=== PATIENT | male | born 1980 | race Caucasian/White ===

== ENCOUNTER → 2021-05-28 00:01 | Outpatient (BNVA) | payer OTHER, SELFPAY | PROVIDERS: Family Provider Family Medicine; PCP Family Medicine; Visit Provider Psychiatry & Neurology Psychiatry | DX: Z03.89 Encounter for observation for other suspected diseases and conditions ruled out (principal); Z79.899 Other long term (current) drug therapy; F32.A Depression, unspecified | CPT/HCPCS: 80053; 80061; 83036; 84402; 84403; 84443; 85025 ==

== ENCOUNTER → 2022-04-29 12:41 | Outpatient (BNVA) | payer OTHER, SELFPAY | PROVIDERS: Family Provider Family Medicine; PCP Family Medicine; Visit Provider Emergency Medicine | DX: R30.0 Dysuria (principal); R10.9 Unspecified abdominal pain; R10.32 Left lower quadrant pain | CPT/HCPCS: 81000; 87086 ==

== ENCOUNTER 2022-05-05 08:38 | Outpatient (CLI) | payer OTHER, SELFPAY ==
--- NOTE | 2022-05-05 09:15 | US_ITS ---
WS: [id number] Limited abdomen ultrasound. HISTORY: Pain LEFT lower quadrant. Ultrasound is directed to the area of pain in the LEFT lower quadrant. No defect is noted within the abdominal wall musculature. There is a very small ill-defined area of i ncreased echogenicity in the LEFT lower quadrant in the area of pain measuring 8 x 11 mm. This may re present a small lipoma or a very tiny hernia containing omentum only. No abnormality was noted on a C T from 2019 and the LEFT lower quadrant. US/US abdomen limited [id number] IMPRESSION: 1. Possible very small omental hernia versus lipoma in the LEFT lower quadrant . 2. No herniation of bowel loop no suspicious mass.
== END 2022-05-05 08:39 | disposition home or self-care (01) ==
PROVIDERS: PCP Family Medicine; Visit Provider Emergency Medicine
DX: R10.9 Unspecified abdominal pain (principal)
CPT/HCPCS: 76705

== ENCOUNTER → 2022-09-08 09:29 | Outpatient (BNVA) | payer OTHER, SELFPAY | PROVIDERS: PCP Family Medicine; Visit Provider Family Medicine | DX: R53.83 Other fatigue (principal); E34.9 Endocrine disorder, unspecified; E78.1 Pure hyperglyceridemia; Z13.1 Encounter for screening for diabetes mellitus; I10 Essential (primary) hypertension | CPT/HCPCS: 80053; 80061; 82607; 82652; 84402; 84403; 84443; 85025 ==

== ENCOUNTER 2022-10-20 16:30 | Outpatient (CLI) | payer OTHER, SELFPAY | END 2022-10-20 16:31 | disposition home or self-care (01) | LOC: SLEEP 10-21 16:58 | PROVIDERS: PCP Family Medicine; Visit Provider Family Medicine | DX: G47.10 Hypersomnia, unspecified (principal) | CPT/HCPCS: G0399 ==

== ENCOUNTER → 2022-12-22 09:55 | Outpatient (BNVA) | payer OTHER, SELFPAY | PROVIDERS: PCP Family Medicine; Visit Provider Family Medicine | DX: E34.9 Endocrine disorder, unspecified (principal) | CPT/HCPCS: 84402; 84403 ==

== ENCOUNTER → 2023-03-23 10:09 | Outpatient (BNVA) | payer OTHER, SELFPAY | PROVIDERS: PCP Family Medicine; Visit Provider Family Medicine | DX: E34.9 Endocrine disorder, unspecified (principal) | CPT/HCPCS: 84402; 84403 ==

== ENCOUNTER 2023-07-22 15:48 | Inpatient (IN) | payer MEDICAID, SELFPAY ==
[2023-07-22 15:50] VITALS: BP 147/79; PULSE 70; TEMP 36.8; O2SAT 99; BMI 29.5
--- NOTE | 2023-07-22 16:08 | ED.C_ITS ---
HPI - Psych 2 General: Chief Complaint: Psychiatric Symptoms Stated Complaint: psych eval Time Seen by Provider: 07/22/23 15:49 Source: patient and police Mode of arrival: other Limitations: no limitations History of Present Illness: 42-year-old male states been having extr navneet depression. 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 He does have a history of depression in the past. Associated symptoms: Reports depression and suicidal ideation Review of Systems 2 Const: Denies: fever(s), chills, body aches or change in appetite ENMT: Denies: throat pain or dental pain Card: Denies: chest pain Resp: Denies: dyspnea GI: Denies: abdominal pain, nausea, vomiting or diarrhea Musc: Denies: neck pain or back pain Skin/Breast: Denies: rash Neuro: Denies: headache(s) Psych: Reports: depression and suicidal ideation PFS ED 2 PFSH: Medical History Anxiety Degenerative disc disease Depression Family history of alpha 1 antitrypsin deficiency Other senior living (current) drug therapy 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 Psychiatric care Social History Smoking and tobacco/nicotine status: former use of tobacco/nicotine Physical Exam 2 Const: COMMON NORMALS: no acute distress, patient oriented x3 and healthy appearing HENMT: COMMON NORMALS: normocephalic and atraumatic HEAD & SCALP: n ormocephalic and atraumatic Neck/C-Spine: COMMON NORMALS: full ROM and supple Chest: COMMONS NORMALS: normal inspection of the chest Resp: COMMON NORMALS: normal respiratory effort Extremity: COMMON NORMALS: normal to inspection and full ROM Neuro: COMMON NORMALS: patient oriented x3, moves all extremities and no focal motor deficits Psych: COMMON NORMALS: mental status grossly normal, Normal thought process present and cooperative MOOD & AFFECT: Yes depressed mood THOUGHT PROCESS: Normal thought process present THOUGHT CONTENT: Yes Suicidality present Skin: COMMON NORMALS: no rashes or lesions noted and no wounds GENERAL SKIN EXAM: no rashes or lesions noted Course 2 Vital Signs: Vital signs: Vital Signs Temperature 98.3 F 07/22/23 15:50 Pulse Rate 70 07/22/23 15:50 Blood Pressure 147/79 07/22/23 15:50 Pulse Oximetry 99 07/22/23 15:50 Oxygen Delivery Me thod Room Air 07/22/23 15:50 MDM - Psych Medical Decision Making Patient presents here with suicidal ideations he is placed in a 96-hour hold I spoke to psychiatrist and will admit at this time. Medical Records I reviewed the patient's medical records. Lab Data I reviewed the patient's lab results. 07/22/23 15:38 07/22/23 15:38 Laboratory Results WBC 5.85 10^3/uL (3.29-11.43) 07/22/23 15:38 RBC 5.73 10^6/uL (3.85-5.65) H 07/22/23 15:38 Hgb 17.40 g/dL (11.27-16.99) H 07/22/23 15:38 Hct 51.9 % (37-53) 07/22/23 15:38 MCV 90.6 fl (82-101) 07/22/23 15:38 MCH 30.4 pg (27-33) 07/22/23 15:38 MCHC 33.5 g/dL (30-55) 07/22/23 15:38 RDW 12.0 % (12.1-15.1) L 07/22/23 15:38 Plt Count 220 10^3/cmm (157-399) 07/22/23 15:38 MPV 9.3 fL (7.4-10.4) 07/22/23 15:38 Neut % (Auto) 66.1 % 07/22/23 15:38 Lymph % (Auto) 21.9 % 07/22/23 15:38 [place] % (Auto) 8.9 % 07/22/23 15:38 Eos % (Auto) 2.2 % 07/22/23 15:38 Baso % (Auto) 0.7 % 07/22/23 15:38 Neut # (Auto) 3.87 10^3/uL (1.8-7.7) 07/22/23 15:38 Lymph # (Auto) 1.3 10^3/uL (0.8-4.8) 07/22/23 15:38 [place] # (Auto) 0.5 10^3/uL (0.2-0.9) 07/22/23 15:38 Eos # (Auto) 0.1 10^3/uL (0.0-0.8) 07/22/23 15:38 Baso # (Auto) 0.0 10^3/uL (0.0-0.1) 07/22/23 15:38 Nucleated RBC % (auto) 0 % 07/22/23 15:38 Nucleated RBCs # 0.0 /100WBC 07/22/23 15:38 Sodium 138 mmol/L (136-145) 07/22/23 15:38 Potassium 3.9 mmol/L (3.5-5.1) 07/22/23 15:38 Chloride 101 mmol/L (98-107) 07/22/23 15:38 Carbon Dioxide 26 mmol/L (22-29) 07/22/23 15:38 Anion Gap 14.9 (5-19) 07/22/23 15:38 BUN 13 mg/dL (6-20) 07/22/23 15:38 Creatinine 1.1 mg/dL (0.7-1.2) 07/22/23 15:38 GFR Calculation 73.4 mL/min (90-130) L 07/22/23 15:38 Glucose 97 mg/dL (65-115) 07/22/23 15:38 Calculated Osmolality 286 mOsm/kg (285-295) 07/22/23 15:38 Calcium 9.1 mg/dL (8.5-10.5) 07/22/23 15:38 Total Bilirubin 0.6 mg/dL (0.15-1.2) 07/22/23 15:38 AST 51 U/L (0-40) H 07/22/23 15:38 ALT 66 U/L (0-41) H 07/22/23 15:38 Alkaline Phosphatase 57 U/L (40-130) 07/22/23 15:38 Total Protein 8.3 g/dL (6.6-8.7) 07/22/23 15:38 Albumin 4.9 g/dL (3.5-5.2) 07/22/23 15:38 Globulin 3.4 g/dL (1.3-4.6) 07/22/23 15:38 Salicylates < 0.3 mg/dL (3-10) L 07/22/23 15:38 Urine Opiates Screen Negative ng/mL (Negative) 07/22/23 16:00 Acetaminophen < 5.0 ug/mL (10-30) L 07/22/23 15:38 Ur Barbiturates Screen Negative ng/mL (Negative) 07/22/23 16:00 Ur Phencyclidine Scrn Negative ng/mL (Negative) 07/22/23 16:00 Ur Amphetamines Screen Negative ng/mL (Negative) 07/22/23 16:00 U Benzodiazepines Scrn Negative ng/mL (Negative) 07/22/23 16:00 Urine Cocaine Screen Negative ng/mL (Negative) 07/22/23 16:00 U Marijuana (THC) Screen Negative ng/mL (Negative) 07/22/23 16:00 Ethyl Alcohol 66 mg/dL (0-10) H 07/22/23 15:38 No radiology studies performed this visit Discharge Plan Discharge Patient Disposition: Admitted As Inpatient Clinical Impression: Suicidal ideation Condition: Stable Prescriptions: No Action cholecalciferol (vitamin D3) 10 mcg (400 unit) capsule 10 mcg PO DAILY omega 0-znz-lex-fish oil [Fish Oil] 1,000 mg (120 mg-180 mg) capsule 1 cap PO BID clonazepam 0.5 mg tablet 0.5 mg PO BID PRN (Reason: anxiety) 30 Days Qty: 60 2RF escitalopram oxalate 20 mg tablet 20 mg PO DAILY 30 Days Qty: 30 3RF testosterone cypionate [Depo-Testosterone] 200 mg/mL oil 200 mg SUBCUT Q14D 90 Days Qty: 7 0RF Rx Instructions: Include IM needles and syringes for injection hydroxyzine HCl 10 mg tablet 10 mg PO BID PRN (Reason: sleep or anxiety) 30 Days Qty: 60 0RF Referrals: Donna Ibrahim MD [Primary Care Provider] - Coding Level of Care Code ED [employer] for [facility] Kimberly
[2023-07-22 16:15] LABS: Basophils % 0.7 %; Eosinophils # 0.1 10^3/uL (0.0-0.8); Eosinophils % 2.2 %; Hematocrit 51.9 % (37-53); Lymphocytes # 1.3 10^3/uL (0.8-4.8); Lymphocytes % 21.9 %; Mean Corpuscular HGB Conc 33.5 g/dL (30-55); Mean Corpuscular Hemoglobin 30.4 pg (27-33); Mean Corpuscular Volume 90.6 fl (82-101); Mean Platelet Volume 9.3 fL (7.4-10.4); Monocytes # 0.5 10^3/uL (0.2-0.9); Monocytes % 8.9 %; Neutrophils # 3.87 10^3/uL (1.8-7.7); Neutrophils % 66.1 %; Nucleated Red Blood Cells % 0 %; Platelet Count 220 10^3/cmm (157-399); Red Blood Count 5.73 10^6/uL (3.85-5.65); White Blood Count 5.85 10^3/uL (3.29-11.43)
[2023-07-22 16:26] LABS: Amphetamines Screen Urine Negative (Negative); Barbiturates Screen Urine Negative (Negative); Benzodiazepines Screen Urine Negative (Negative); Cocaine Screen Urine Negative (Negative); Opiate Screen Urine Negative (Negative); PCP Screen Urine Negative (Negative); THC Screen Urine Negative (Negative)
[2023-07-22 16:33] LABS: Acetaminophen < 5.0 ug/mL (10-30); Alanine Aminotransferase 66 U/L (0-41); Albumin Level 4.9 g/dL (3.5-5.2); Alcohol Level 66 mg/dL (0-10); Alkaline Phosphatase 57 U/L (40-130); Aspartate Amino Transferase 51 U/L (0-40); Blood Urea Nitrogen 13 mg/dL (6-20); Calcium 9.1 mg/dL (8.5-10.5); Carbon Dioxide 26 mmol/L (22-29); Chloride 101 mmol/L (98-107); Globulin 3.4 g/dL (1.3-4.6); Glomerular Filtration Rate 73.4 mL/min (90-130); Glucose 97 mg/dL (65-115); Osmolality Calculated 286 mOsm/kg (285-295); Salicylate < 0.3 mg/dL (3-10); Sodium 138 mmol/L (136-145); Total Bilirubin 0.6 mg/dL (0.15-1.2); Total Protein 8.3 g/dL (6.6-8.7)
[2023-07-22 16:34] LABS: Anion Gap 14.9 (5-19); Potassium 3.9 mmol/L (3.5-5.1)
--- NOTE | 2023-07-22 17:09 | PC.NURSE ---
96 hour hold rights read and reviewed with patient. Patient verbalized understandings and copy left at the bedside.
[2023-07-22 20:20] VITALS: BP 144/92; PULSE 57; RESP 20; TEMP 36.8; O2SAT 99
--- NOTE | 2023-07-23 06:41 | PC.NURSE ---
pt sleeping resp 16
[2023-07-23] MEDS: omega-3 fatty acids 1,000 mg Capsule 1000 MG PO ×2 (08:29→17:45)
[2023-07-23] MEDS: escitalopram 10 mg Tablet 20 MG PO (08:29)
[2023-07-23] MEDS: cholecalciferol (vitamin D3) 1,000 unit Tablet 500 UNIT PO (08:30)
[2023-07-23] MEDS: CLONazepam 0.5 mg Tablet PO (08:30)
--- NOTE | 2023-07-23 10:14 | P.NPUHP_ITS ---
Providers/Chief Complaint 2 Admitting Physician: Zheng Ibrahim MD Primary Care Provider: Donna Ibrahim MD Chief Complaint: psych eval HPI NPU History of Present Illness Star Burden is a 42 year old male who presented to the emergency department with the following report: Chief Complaint: Psychiatric Symptoms Stated Complaint: psych eval Time Seen by Provider: 07/22/23 15:49 Source: patient and police Mode of arrival: other Limitations: no limitations History of Present Illness: 42-year-old male states been having extreme depression. 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 He does have a history of depression in the past. Associated symptoms: Reports depression and suicidal ideation The patient was admitted to the neuropsychiatric unit for definitive treatment of those issues. The patient presents today reporting that he is taking Lexapro and Klonopin. Patient reports he is here because he made a mistake and should have never said anything. He reports that he was having bad thoughts and called his lauro and brought himself in, and he now wishes he would not have, saying he wants to go home. He denies feeling suicidal. The patient denies any previous psychiatric hospitalizations. He endorses seeing Dr. Toribio at [facility] for about a year, due to depression. He reports that he takes testosterone. The patient reports that he quit smoking a long time ago and vapes now but is in the process of quitting that as well. He endorses alcohol use, mostly on the weekend. He endorses very little marijuana use. He denies cocaine, methamphetamine or any other illicit drug use. He has never had a DUI or any other drug related charges. The patient endorses depression since he was a kid but reports that he did not seek help until more recently at his ?s encouragement. He reports that about three months ago he got fired from [employer] for speaking his mind about something, stating it was all over the news. Since then, he reports it has been tough saying it was his love, his passion, his identity. 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 Since that happened and he lost his identity to help people, his depression has gotten worse. He endorses that he found another job for now, but it doesn?t pay the same, and doesn?t have insurance, and it not enough, and he and his have worked hard and own their home and vehicles, and now they are treading water. Yesterday all that was getting to him, and he called his friend to bring him in. But he states that now he would rather be home because at least he feels at peace because he has a great and daughter. He endorses some sleep difficulty recently. He reports that he thinks he is just trying to find his place after 21 years at the [employer]. He denies self-injurious behavior. He denies any previous suicidal actions or passive wish. He denies paranoia or auditory or visual hallucinations. He endorses nightmares of not being there during a fire and not being available to help. He reports that yesterday he was just feeling like a failure, and he just found out that his had some anxiety and he felt responsible. PSYCHIATRIC HISTORY: As above. SUBSTANCE ABUSE HISTORY: As above.? FAMILY HISTORY: The patient endorses mental health issues on dad?s side of the family. He endorses addiction issues on his dad?s side. He denies suicide attempts or completions. DEVELOPMENTAL HISTORY: The patient denies any issues with his mother?s or delivery of him. The patient reports learning to walk and talk and meeting developmental milestones on time. The patient denies speech therapy, learning support, emotional support, or special education classes. PSYCHOSOCIAL HISTORY: The patient reports that his mother and father were together at his and were together until his dad of cancer, June of 1996. He reports that there are four total children from that union, and he is the second oldest. He has an older sister and two younger brothers. He reports that his mom got remarried about six years after his dad and they are still together. He describes his childhood as great until dad got cancer, leukemia. He denies emotional, physical, or sexual abuse. He denies [employer] involvement. He reports that he graduated from high school. 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 He endorses being heterosexual, with his longest relationship being twenty-two years. He has been once and has a daughter who is 16 years old. He has not been in the . He denies a orthodox belief system. He reports that he worked at the [employer] for 21 years, which was his longest job. He reports that he currently lives in a house with his and daughter. LEGAL HISTORY: Denied. MEDICAL HISTORY: The patient denies any known allergies to medications. The patient reports that they are watching his blood pressure as it has been a little bit elevated, because of the testosterone. He reports that he had inguinal hernia surgery, on his left side, last April. Meds NPU Home Medications Medication Instructions Recorded Confirmed Last Taken Type cholecalciferol (vitamin D3) 10 10 mcg PO DAILY 06/23/21 07/22/23 07/22/23 History mcg (400 unit) capsule omega 4-ssx-nsa-fish oil 1,000 mg 1 cap PO BID 09/08/22 07/22/23 07/22/23 History (120 mg-180 mg) capsule (Fish Oil) testosterone cypionate 200 mg/mL 200 mg SUBCUT Q14D 90 days #7 mL 03/30/23 07/22/23 Unknown Rx intramuscular oil (Depo-Testosterone) clonazepam 0.5 mg tablet 0.5 mg PO BID PRN anxiety 30 days 05/18/23 07/22/23 07/22/23 Rx #60 tabs escitalopram oxalate 20 mg tablet 20 mg PO DAILY 30 days #30 tabs 06/10/23 07/22/23 07/22/23 Rx Allergies Allergy/AdvReac Type Severity Reaction Status Date / Time No Known Allergies Allergy Verified 07/22/23 16:09 PFS NPU 2 PFSH: Medical History Anxiety Degenerative disc disease Depression Family history of alpha 1 antitrypsin deficiency Other shelter (current) drug therapy Other shelter (current) drug therapy Psychiatric care Social History Smoking and tobacco/nicotine status: former use of tobacco/nicotine Mental Status Exam 2 MSE Comments: This is a well-nourished, well-developed, white male, in hospital scrubs, with adequate grooming and eye contact. Significant tattooing on exposed skin. No abnormal movements, except for mild psychomotor retardation. Cooperative with exam in mild distress. Speech was normal rate and volume. Mood described as ?if I can get out of here, I will be really happy?; affect congruent. Thought process, organized. Thought content: patient denied any suicidal or homicidal ideation, there were no delusions reported or noted, patient denied any auditory or visual hallucinations. Attention, concentration, and memory appeared intact, but none were formally tested. Alert and oriented times three. Insight and judgment appear fair. Impulse control is limited. Vitals/I&O/Wt Last Vital Signs Temp 98.3 F 07/22/23 20:20 Pulse 57 L 07/22/23 20:20 Resp 20 H 07/22/23 20:20 BP 144/92 07/22/23 20:20 Pulse Ox 99 07/22/23 20:20 O2 Del Method Room Air 07/22/23 20:20 Weight last 48 hrs Weight 96.162 kg Data NPU 07/22/23 15:38 07/22/23 15:38 A&P Assessment and plan (1) Generalized anxiety disorder: (2) Major depressive disorder without psychotic features: (3) Testosterone deficiency: (4) Hyperlipidemia: Qualifiers: Hyperlipidemia type: pure hypertriglyceridemia Qualified Code(s): E78.1 - Pure hyperglyceridemia (5) Hypertension: Qualifiers: Hypertension type: primary hypertension Qualified Code(s): I10 - Essential (primary) hypertension (6) GIO (obstructive sleep apnea): (7) Suicidal ideation: Plan This is a 42-year-old white male with history of depression and anxiety and adjusting to a job change who presents with suicidal ideation on a 96-hour hold. 1.? Continue current medication. 2.? Encourage individual, group, and milieu therapy. 3.? Continue q-15-minute checks for safety. 4. Evaluate for safety given concerns of 96-hour hold. Involuntary Hold Information 2 96 Hour Hold: 96 Hour Involuntary Admission: Yes 96 Hour Hold Ending Date: 07/28/23 96 Hour Hold Ending Time: 16:08 Attestations NPU 2 Medical Necessity Statement*: Inpatient hospitalization is medically necessary and the clinically appropriate intervention, at this time. We will monitor medications and make changes as indicated. Patient will be in the hospital for over two midnights. Likely length of stay is 2-4 days. Coding Level of Care Code Acute Code for Chg Fwd Diagnoses Generalized anxiety disorder F41.1 Major depressive disorder without psychotic features F32.9 Testosterone deficiency E34.9 Pure hypertriglyceridemia E78.1 Hyperlipidemia type: pure hypertriglyceridemia Primary hypertension I10 Hypertension type: primary hypertension GIO (obstructive sleep apnea) G47.33 Suicidal ideation R45.854
--- NOTE | 2023-07-23 12:01 | PC.NURSE ---
pt has refused all meals since being here. went to pt explaining the importance of eating while in this facility. pt stated he did this from time to time but he understood the reasoning behind eating. sam was brought to room for pt convience.
[2023-07-23 14:00] VITALS: BP 188/76; PULSE 88; RESP 16; TEMP 36.5; O2SAT 98
--- NOTE | 2023-07-23 15:00 | PC.OT ---
OT eval attempted on 07/23/2023. Will attempt at later time.
[2023-07-23 20:51] VITALS: BP 150/89; PULSE 55; RESP 18; TEMP 36.6; O2SAT 94
[2023-07-24 06:00] VITALS: BP 126/69; PULSE 57; RESP 18; TEMP 36.7; O2SAT 98
--- NOTE | 2023-07-24 08:21 | P.NPUPN_ITS ---
Subjective NPU 2 Subjective: Patient presented today reporting that he is doing fine and would really be happy if we just sent him home. We discussed concerns related to the reports in his affidavit of him putting a gun to his head. He is now reporting that he just do what I needed to say. We discussed that we have no way of knowing what he said he did versus what he actually did and that by talking about having a gun to his head when he has access to guns (in a position that we need to be cautious. He reports that the guns have been removed and he would be safe for discharge and we discussed needing to observe and investigate further. Mental Status Exam 2 MSE Comments: This is a well-nourished, well-developed, white male, in hospital scrubs, with adequate grooming and eye contact. Significant tattooing on exposed skin. No abnormal movements, except for mild psychomotor retardation. Cooperative with exam in mild distress. Speech was normal rate and volume. Mood described as ?if I can get out of here, I will be really happy?; affect congruent. Thought process, organized. Thought content: patient denied any suicidal or homicidal ideation, there were no delusions reported or noted, patient denied any auditory or visual hallucinations. Attention, concentration, and memory appeared intact, but none were formally tested. Alert and oriented times three. Insight and judgment appear fair. Impulse control is limited. Vitals/I&O/Wt Last Vital Signs Temp 98.0 F 07/24/23 06:00 Pulse 57 L 07/24/23 06:00 Resp 18 07/24/23 06:00 BP 126/69 07/24/23 06:00 Pulse Ox 98 07/24/23 06:00 O2 Del Method Room Air 07/23/23 14:00 Weight last 48 hrs Weight 96.162 kg Data NPU 07/22/23 15:38 07/22/23 15:38 A&P Assessment and plan (1) Generalized anxiety disorder: (2) Major depressive disorder without psychotic features: (3) Testosterone deficiency: (4) Hyperlipidemia: Qualifiers: Hyperlipidemia type: pure hypertriglyceridemia Qualified Code(s): E78.1 - Pure hyperglyceridemia (5) Hypertension: Qualifiers: Hypertension type: primary hypertension Qualified Code(s): I10 - Essential (primary) hypertension (6) GIO (obstructive sleep apnea): (7) Suicidal ideation: Plan This is a 42-year-old white male with history of depression and anxiety and adjusting to a job change who presents with suicidal ideation on a 96-hour hold. 1.? Continue current medication. 2.? Encourage individual, group, and milieu therapy. 3.? Continue q-15-minute checks for safety. 4. Evaluate for safety given concerns of 96-hour hold. Involuntary Hold Information 2 96 Hour Hold: 96 Hour Involuntary Admission: Yes 96 Hour Hold Ending Date: 07/28/23 96 Hour Hold Ending Time: 16:08 Attestations NPU 2 Medical Necessity Statement*: Inpatient hospitalization is medically necessary and the clinically appropriate intervention, at this time. We will monitor medications and make changes as indicated. Patient will be in the hospital for over two midnights. Likely length of stay is 2-4 days. Coding Level of Care Code Acute Code for Chg Fwd Diagnoses Generalized anxiety disorder F41.1 Major depressive disorder without psychotic features F32.9 Testosterone deficiency E34.9 Pure hypertriglyceridemia E78.1 Hyperlipidemia type: pure hypertriglyceridemia Primary hypertension I10 Hypertension type: primary hypertension GIO (obstructive sleep apnea) G47.33 Suicidal ideation R45.851
[2023-07-24] MEDS: escitalopram 10 mg Tablet 20 MG PO (09:08)
[2023-07-24] MEDS: cholecalciferol (vitamin D3) 1,000 unit Tablet 500 UNIT PO (09:08)
[2023-07-24] MEDS: omega-3 fatty acids 1,000 mg Capsule 1000 MG PO ×2 (09:08→17:59)
[2023-07-24 14:00] VITALS: BP 108/77; PULSE 61; RESP 16; TEMP 36.6; O2SAT 98
[2023-07-24 20:42] VITALS: BP 161/96; PULSE 61; RESP 18; TEMP 36.7; O2SAT 97
[2023-07-25 06:00] VITALS: BP 116/65; PULSE 104; RESP 15; O2SAT 99
[2023-07-25] MEDS: cholecalciferol (vitamin D3) 1,000 unit Tablet 500 UNIT PO (08:33)
[2023-07-25] MEDS: escitalopram 10 mg Tablet 20 MG PO (08:33)
[2023-07-25] MEDS: omega-3 fatty acids 1,000 mg Capsule 1000 MG PO ×2 (08:33→17:00)
--- NOTE | 2023-07-25 13:03 | P.NPUPN_ITS ---
Subjective NPU 2 Subjective: Patient presented today reporting that he is feeling better and hoping to discharge soon. We discussed the fact that we needed to have a better sense of where her gums are and in the sense that his significant others have concerns about his safety given the statements he is made. He continues to hold to the fact that he made these comments to get assistance but that he never had a gun to his head etc. He denied any side effects to his medications. Mental Status Exam 2 MSE Comments: This is a well-nourished, well-developed, white male, in hospital scrubs, with adequate grooming and eye contact. Significant tattooing on exposed skin. No abnormal movements, except for mild psychomotor retardation. Cooperative with exam in mild distress. Speech was normal rate and volume. Mood described as I feel better; affect congruent. Thought process, organized. Thought content: patient denied any suicidal or homicidal ideation, there were no delusions reported or noted, patient denied any auditory or visual hallucinations. Attention, concentration, and memory appeared intact, but none were formally tested. Alert and oriented times three. Insight and judgment appear fair. Impulse control is limited. Vitals/I&O/Wt Last Vital Signs Temp 98.1 F 07/24/23 20:42 Pulse 104 H 07/25/23 06:00 Resp 15 07/25/23 06:00 BP 116/65 07/25/23 06:00 Pulse Ox 99 07/25/23 06:00 O2 Del Method Room Air 07/24/23 14:00 Weight last 48 hrs Weight 105.596 kg Data NPU 07/22/23 15:38 07/22/23 15:38 A&P Assessment and plan (1) Generalized anxiety disorder: (2) Major depressive disorder without psychotic features: (3) Testosterone deficiency: (4) Hyperlipidemia: Qualifiers: Hyperlipidemia type: pure hypertriglyceridemia Qualified Code(s): E78.1 - Pure hyperglyceridemia (5) Hypertension: Qualifiers: Hypertension type: primary hypertension Qualified Code(s): I10 - Essential (primary) hypertension (6) GIO (obstructive sleep apnea): (7) Suicidal ideation: Plan This is a 42-year-old white male with history of depression and anxiety and adjusting to a job change who presents with suicidal ideation/homicidal ideation on a 96-hour hold. 1.? Continue current medication. 2.? Encourage individual, group, and milieu therapy. 3.? Continue q-15-minute checks for safety. 4. Evaluate for safety given concerns of 96-hour hold. Involuntary Hold Information 2 96 Hour Hold: 96 Hour Involuntary Admission: Yes 96 Hour Hold Ending Date: 07/28/23 96 Hour Hold Ending Time: 16:08 Attestations NPU 2 Medical Necessity Statement*: Inpatient hospitalization is medically necessary and the clinically appropriate intervention, at this time. We will monitor medications and make changes as indicated. Patient will be in the hospital for over two midnights. Likely length of stay is 1-3 days. Coding Level of Care Code Acute Code for Chg Fwd Diagnoses Generalized anxiety disorder F41.1 Major depressive disorder without psychotic features F32.9 Testosterone deficiency E34.9 Pure hypertriglyceridemia E78.1 Hyperlipidemia type: pure hypertriglyceridemia Primary hypertension I10 Hypertension type: primary hypertension GIO (obstructive sleep apnea) G47.33 Suicidal ideation R45.851
[2023-07-25 14:00] VITALS: BP 147/82; PULSE 58; RESP 16; TEMP 36.6; O2SAT 99
[2023-07-25 19:38] VITALS: BP 145/93; PULSE 56; RESP 18; O2SAT 100
[2023-07-25] MEDS: CLONazepam 0.5 mg Tablet PO (20:13)
[2023-07-26 06:00] VITALS: BP 126/78; PULSE 67; RESP 18; O2SAT 98
--- NOTE | 2023-07-26 07:39 | P.NPUPN_ITS ---
Subjective NPU 2 Subjective: Patient presented today reporting that he is feeling okay. We discussed working with his on securing the home from the standpoint of weapons. We also discussed working with the social work team to get appropriate treatment in place as well as follow-up appointments. We discussed the likelihood of discharge in the morning. Otherwise he denied any new issues or side effects to medications. Mental Status Exam 2 MSE Comments: This is a well-nourished, well-developed, white male, in hospital scrubs, with adequate grooming and eye contact. Significant tattooing on exposed skin. No abnormal movements Cooperative with exam in no acute distress. Speech was normal rate and volume. Mood described as better; affect congruent. Thought process, organized. Thought content: patient denied any suicidal or homicidal ideation, there were no delusions reported or noted, patient denied any auditory or visual hallucinations. Attention, concentration, and memory appeared intact, but none were formally tested. Alert and oriented times three. Insight and judgment appear fair. Impulse control is limited. Vitals/I&O/Wt Last Vital Signs Temp 98 F 07/25/23 14:00 Pulse 67 07/26/23 06:00 Resp 18 07/26/23 06:00 BP 126/78 07/26/23 06:00 Pulse Ox 98 07/26/23 06:00 O2 Del Method Room Air 07/25/23 19:38 Weight last 48 hrs Weight 105.596 kg Data NPU 07/22/23 15:38 07/22/23 15:38 A&P Assessment and plan (1) Generalized anxiety disorder: (2) Major depressive disorder without psychotic features: (3) Testosterone deficiency: (4) Hyperlipidemia: Qualifiers: Hyperlipidemia type: pure hypertriglyceridemia Qualified Code(s): E78.1 - Pure hyperglyceridemia (5) Hypertension: Qualifiers: Hypertension type: primary hypertension Qualified Code(s): I10 - Essential (primary) hypertension (6) GIO (obstructive sleep apnea): (7) Suicidal ideation: Plan This is a 42-year-old white male with history of depression and anxiety and adjusting to a job change who presents with suicidal ideation/homicidal ideation on a 96-hour hold. 1.? Continue current medication. 2.? Encourage individual, group, and milieu therapy. 3.? Continue q-15-minute checks for safety. 4. Evaluate for safety given concerns of 96-hour hold. Involuntary Hold Information 2 96 Hour Hold: 96 Hour Involuntary Admission: Yes 96 Hour Hold Ending Date: 07/28/23 96 Hour Hold Ending Time: 16:08 Attestations NPU 2 Medical Necessity Statement*: Inpatient hospitalization is medically necessary and the clinically appropriate intervention, at this time. We will monitor medications and make changes as indicated. Patient will be in the hospital for over two midnights. Likely length of stay is 1-3 days. Coding Level of Care Code Acute Code for Chg Fwd Diagnoses Generalized anxiety disorder F41.1 Major depressive disorder without psychotic features F32.9 Testosterone deficiency E34.9 Pure hypertriglyceridemia E78.1 Hyperlipidemia type: pure hypertriglyceridemia Primary hypertension I10 Hypertension type: primary hypertension GIO (obstructive sleep apnea) G47.33 Suicidal ideation R45.851
[2023-07-26] MEDS: omega-3 fatty acids 1,000 mg Capsule 1000 MG PO ×2 (08:28→18:03)
[2023-07-26] MEDS: escitalopram 10 mg Tablet 20 MG PO (08:28)
[2023-07-26] MEDS: cholecalciferol (vitamin D3) 1,000 unit Tablet 500 UNIT PO (08:28)
[2023-07-26 14:00] VITALS: BP 151/87; PULSE 61; RESP 16; TEMP 36.9; O2SAT 96
[2023-07-26 20:23] VITALS: BP 172/83; PULSE 61; RESP 18; TEMP 36.8; O2SAT 97
[2023-07-26] MEDS: CLONazepam 0.5 mg Tablet PO (21:02)
[2023-07-27 06:00] VITALS: RESP 16
[2023-07-27] MEDS: cholecalciferol (vitamin D3) 1,000 unit Tablet 500 UNIT PO (07:51)
[2023-07-27] MEDS: omega-3 fatty acids 1,000 mg Capsule 1000 MG PO (07:51)
[2023-07-27] MEDS: escitalopram 10 mg Tablet 20 MG PO (07:51)
--- NOTE | 2023-07-27 10:17 | P.NPUDS_ITS ---
Diagnoses at Discharge Discharge Diagnosis (1) Generalized anxiety disorder: Status: Acute (2) Major depressive disorder without psychotic features: Status: Acute (3) Testosterone deficiency: Status: Acute (4) Hyperlipidemia: Status: Acute Qualifiers: Hyperlipidemia type: pure hypertriglyceridemia Qualified Code(s): E78.1 - Pure hyperglyceridemia (5) Hypertension: Status: Acute Qualifiers: Hypertension type: primary hypertension Qualified Code(s): I10 - Essential (primary) hypertension (6) GIO (obstructive sleep apnea): Status: Acute (7) Suicidal ideation: Status: Resolved Reason for Visit Reason for Visit: psych eval Brief History: History of Present Illness Star Burden is a 42 year old male who presented to the emergency department with the following report: Chief Complaint: Psychiatric Symptoms Stated Complaint: psych eval Time Seen by Provider: 07/22/23 15:49 Source: patient and police Mode of arrival: other Limitations: no limitations History of Present Illness: 42-year-old male states been having extr navneet depression. 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 He does have a history of depression in the past. Associated symptoms: Reports depression and suicidal ideation The patient was admitted to the neuropsychiatric unit for definitive treatment of those issues. The patient presents today reporting that he is taking Lexapro and Klonopin. Patient reports he is here because he made a mistake and should have never said anything. He reports that he was having bad thoughts and called his lauro and brought himself in, and he now wishes he would not have, saying he wants to go home. He denies feeling suicidal. The patient denies any previous psychiatric hospitalizations. He endorses seeing Dr. Toribio at [facility] for about a year, due to depression. He reports that he takes testosterone. The patient reports that he quit smoking a long time ago and vapes now but is in the process of quitting that as well. He endorses alcohol use, mostly on the weekend. He endorses very little marijuana use. He denies cocaine, methamphetamine or any other illicit drug use. He has never had a DUI or any other drug related charges. The patient endorses depression since he was a kid but reports that he did not seek help until more recently at his ?s encouragement. He reports that about three months ago he got fired from [employer] for speaking his mind about something, stating it was all over the news. Since then, he reports it has been tough saying it was his love, his passion, his identity. 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 Since that happened and he lost his identity to help people, his depression has gotten worse. He endorses that he found another job for now, but it doesn?t pay the same, and doesn?t have insurance, and it not enough, and he and his have worked hard and own their home and vehicles, and now they are treading water. Yesterday all that was getting to him, and he called his friend to bring him in. But he states that now he would rather be home because at least he feels at peace because he has a great and daughter. He endorses some sleep difficulty recently. He reports that he thinks he is just trying to find his place after 21 years at the [employer]. He denies self-injurious behavior. He denies any previous suicidal actions or passive wish. He denies paranoia or auditory or visual hallucinations. He endorses nightmares of not being there during a fire and not being available to help. He reports that yesterday he was just feeling like a failure, and he just found out that his had some anxiety and he felt responsible. PSYCHIATRIC HISTORY: As above. SUBSTANCE ABUSE HISTORY: As above. FAMILY HISTORY: The patient endorses mental health issues on dad?s side of the family. He endorses addiction issues on his dad?s side. He denies suicide attempts or completions. DEVELOPMENTAL HISTORY: The patient denies any issues with his mother?s or delivery of him. The patient reports learning to walk and talk and meeting developmental milestones on time. The patient denies speech therapy, learning support, emotional support, or special education classes. PSYCHOSOCIAL HISTORY: The patient reports that his mother and father were together at his and were together until his dad of cancer, June of 1996. He reports that there are four total children from that union, and he is the second oldest. He has an older sister and two younger brothers. He reports that his mom got remarried about six years after his dad and they are still together. He describes his childhood as great until dad got cancer, leukemia. He denies emotional, physical, or sexual abuse. He denies C[employer] involvement. He reports that he graduated from high school. 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 He endorses being heterosexual, with his longest relationship being twenty-two years. He has been once and has a daughter who is 16 years old. He has not been in the . He denies a lutheran belief system. He reports that he worked at the [employer] for 21 years, which was his longest job. He reports that he currently lives in a house with his and daughter. LEGAL HISTORY: Denied. MEDICAL HISTORY: The patient denies any known allergies to medications. The patient reports that they are watching his blood pressure as it has been a little bit elevated, because of the testosterone. He reports that he had inguinal hernia surgery, on his left side, last April. Hospital Course Hospital Course He slowly acclimated to the individual, group and milieu therapies provided. He presented on a 96-hour hold after concerns arose about suicidality. It was unclear how adherent he had been with the medications. So his home medications were continued, giving consistently and he was discharged with those medications. He did well with that regimen. He was able to work with the social work team to get appropriate follow-up and aftercare. He had significant improvement and was able to contract for safety outside of the hospital prior to discharge. We were able to work with him as significant other to make sure that access to lethal means was removed from the home. During the hospitalization, the patient had routine laboratory studies which were within normal limits except for a few outliers.? Additionally, there was a general medical evaluation which was also within normal limits and revealed no new acute processes.? At the time of discharge, he denied psychosis or lethality.? Mood and anxiety were well managed.? The patient endorsed a plan to avoid all drugs of abuse and follow up with the aftercare recommendations of the treatment team.? The patient was evaluated and deemed to be absent credible lethality and had achieved the maximum benefit from an inpatient hospitalization, and so was discharged. Involuntary Hold Information 96 Hour Hold: 96 Hour Involuntary Admission: Yes 96 Hour Hold Ending Date: 07/28/23 96 Hour Hold Ending Time: 16:08 Mental Status Exam MSE Comments: This is a well-nourished, well-developed, white male, in hospital scrubs, with adequate grooming and eye contact. Significant tattooing on exposed skin. No abnormal movements Cooperative with exam in no acute distress. Speech was normal rate and volume. Mood described as better; affect congruent. Thought process, organized. Thought content: patient denied any suicidal or homicidal ideation, there were no delusions reported or noted, patient denied any auditory or visual hallucinations. Attention, concentration, and memory appeared intact, but none were formally tested. Alert and oriented times three. Insight and judgment appear fair. Impulse control is limited. Discharge Data Studies Completed and Pending: Laboratory Results WBC 5.85 10^3/uL (3.2 9-11.43) 07/22/23 15:38 RBC 5.73 10^6/uL (3.8 5-5.65) H 07/22/23 15:38 Hgb 17.40 g/dL (11.27 -16.99) H 07/22/23 15:38 Hct 51.9 % (37-53) 07/22/23 15:38 MCV 90.6 fl (82-101) 07/22/23 15:38 MCH 30.4 pg (27-33) 07/22/23 15:38 MCHC 33.5 g/dL (30-55) 07/22/23 15:38 RDW 12.0 % (12.1-15.1 ) L 07/22/23 15:38 Plt Count 220 10^3/cmm (157 -399) 07/22/23 15:38 MPV 9.3 fL (7.4-10.4) 07/22/23 15:38 Neut % (Auto) 66.1 % 07/22/23 15:38 Lymph % (Auto) 21.9 % 07/22/23 15:38 Tyler % (Auto) 8.9 % 07/22/23 15:38 Eos % (Auto) 2.2 % 07/22/23 15:38 Baso % (Auto) 0.7 % 07/22/23 15:38 Neut # (Auto) 3.87 10^3/uL (1.8 -7.7) 07/22/23 15:38 Lymph # (Auto) 1.3 10^3/uL (0.8- 4.8) 07/22/23 15:38 Tyler # (Auto) 0.5 10^3/uL (0.2- 0.9) 07/22/23 15:38 Eos # (Auto) 0.1 10^3/uL (0.0- 0.8) 07/22/23 15:38 Baso # (Auto) 0.0 10^3/uL (0.0- 0.1) 07/22/23 15:38 Nucleated RBC % (a uto) 0 % 07/22/23 15:38 Nucleated RBCs # 0.0 /100WBC 07/22/23 15:38 Sodium 138 mmol/L (136-1 45) 07/22/23 15:38 Potassium 3.9 mmol/L (3.5-5 .1) 07/22/23 15:38 Chloride 101 mmol/L (98-10 7) 07/22/23 15:38 Carbon Dioxide 26 mmol/L (22-29) 07/22/23 15:38 Anion Gap 14.9 (5-19) 07/22/23 15:38 BUN 13 mg/dL (6-20) 07/22/23 15:38 Creatinine 1.1 mg/dL (0.7-1. 2) 07/22/23 15:38 GFR Calculation 73.4 mL/min (90-1 30) L 07/22/23 15:38 Glucose 97 mg/dL (65-115) 07/22/23 15:38 Calculated Osmolal ity 286 mOsm/kg (285- 295) 07/22/23 15:38 Calcium 9.1 mg/dL (8.5-10 .5) 07/22/23 15:38 Total Bilirubin 0.6 mg/dL (0.15-1 .2) 07/22/23 15:38 AST 51 U/L (0-40) H 07/22/23 15:38 ALT 66 U/L (0-41) H 07/22/23 15:38 Alkaline Phosphata se 57 U/L (40-130) 07/22/23 15:38 Total Protein 8.3 g/dL (6.6-8.7 ) 07/22/23 15:38 Albumin 4.9 g/dL (3.5-5.2 ) 07/22/23 15:38 Globulin 3.4 g/dL (1.3-4.6 ) 07/22/23 15:38 Salicylates < 0.3 mg/dL (3-10 ) L 07/22/23 15:38 Urine Opiates Scre en Negative ng/mL (N egative) 07/22/23 16:00 Acetaminophen < 5.0 ug/mL (10-3 0) L 07/22/23 15:38 Ur Barbiturates Sc reen Negative ng/mL (N egative) 07/22/23 16:00 Ur Phencyclidine S crn Negative ng/mL (N egative) 07/22/23 16:00 Ur Amphetamines Sc reen Negative ng/mL (N egative) 07/22/23 16:00 U Benzodiazepines Scrn Negative ng/mL (N egative) 07/22/23 16:00 Urine Cocaine Scre en Negative ng/mL (N egative) 07/22/23 16:00 U Marijuana (THC) Screen Negative ng/mL (N egative) 07/22/23 16:00 Ethyl Alcohol 66 mg/dL (0-10) H 07/22/23 15:38 Vitals: Last Vital Signs Temp 98.2 F 07/26/23 20:23 Pulse 61 07/26/23 20:23 Resp 16 07/27/23 06:00 BP 172/83 07/26/23 20:23 Pulse Ox 97 07/26/23 20:23 O2 Del Method Room Air 07/26/23 14:00 Discharge Plan Discharge Patient Disposition: Home Condition: Stable Prescriptions: Continued cholecalciferol (vitamin D3) 10 mcg (400 unit) capsule 10 mcg PO DAILY omega 9-wzd-dnu-fish oil [Fish Oil] 1,000 mg (120 mg-180 mg) capsule 1 cap PO BID clonazepam 0.5 mg tablet 0.5 mg PO BID PRN (Reason: anxiety) 30 Days Qty: 60 2RF escitalopram oxalate 20 mg tablet 20 mg PO DAILY 30 Days Qty: 30 3RF testosterone cypionate [Depo-Testosterone] 200 mg/mL oil 200 mg SUBCUT Q14D 90 Days Qty: 7 0RF Rx Instructions: Include IM needles and syringes for injection Discharge Orders: Discharge Order (Routine); Ordered 07/27/23 Ordered By: Zheng Ibrahim Referrals: [facility] [Other] - 07/29/23 10:45 am (Hospital follow up one time visit with Mitzy Foster. ) Heike Toribio MD [[place]] - 08/23/23 3:45 pm (Follow up at [address] [place] [address]) Donna Ibrahim MD [Primary Care Provider] - Discharge Diet: Regular Discharge Activity: Resume usual activity Patient Instructions: Generalized Anxiety Disorder, Depression (DC), Help Prevent Suicide (DC), Suicide Prevention (DC), Opioid Safety Discharge Attestations NPU Time Spent in Discharge Care*: less than 30 min Specific Discharge Activities: Specific discharge activities: educating pa tient, discussing with pillowcase cutter/social workers/dc planners, documenting/other paperwork and evaluating patient/reviewing data Coding Level of Care Code Acute Code for Chg Fwd Diagnoses Generalized anxiety disorder F41.1 Major depressive disorder without psychotic features F32.9 Testosterone deficiency E34.9 Pure hypertriglyceridemia E78.1 Hyperlipidemia type: pure hypertriglyceridemia Primary hypertension I10 Hypertension type: primary hypertension GIO (obstructive sleep apnea) G47.33 Suicidal ideation R45.851
[2023-07-27 10:41] VITALS: RESP 16
== END 2023-07-27 12:54 | disposition home or self-care (01) | DRG 880 ==
LOC: ER 16:39 → NP 17:20
PROVIDERS: Admitting Provider Psychiatry & Neurology Psychiatry; Emergency Provider Emergency Medicine; PCP Family Medicine; Visit Provider Psychiatry & Neurology Psychiatry
DX: F41.1 Generalized anxiety disorder (principal); R45.851 Suicidal ideations; F32.9 Major depressive disorder, single episode, unspecified; F17.290 Nicotine dependence, other tobacco product, uncomplicated; Z81.8 Family history of other mental and behavioral disorders; Z81.3 Family history of other psychoactive substance abuse and dependence; E29.1 Testicular hypofunction; E78.1 Pure hyperglyceridemia; I10 Essential (primary) hypertension; G47.33 Obstructive sleep apnea (adult) (pediatric)
CPT/HCPCS: 80053; 80306; 80307; 85025; 96372; 97150; 97165; 99285; J1071

== ENCOUNTER → 2023-10-21 14:56 | Outpatient (BNVA) | payer SELFPAY | PROVIDERS: PCP Family Medicine; Visit Provider Family Medicine | DX: I10 Essential (primary) hypertension (principal); E78.1 Pure hyperglyceridemia; E34.9 Endocrine disorder, unspecified | CPT/HCPCS: 80053; 80061; 84402; 84403 ==

== ENCOUNTER 2023-11-01 18:43 | Emergency (ER) | payer SELFPAY ==
[2023-11-01 18:46] VITALS: BP 148/95; PULSE 61; RESP 16; TEMP 36.8; O2SAT 100
--- NOTE | 2023-11-01 18:58 | XRR_ITS ---
PROCEDURE INFORMATION: Exam: XR Lumbosacral Spine Exam date and time: 11/01/2023 7:17 PM Age: 42 years old Clinical indication: Low back pain TECHNIQUE: Imaging protocol: Radiologic exam of the lumbosacral spine. Views: 2 or 3 views. COMPARISON: CR XR lumbar spine 2-3V* [id number] 07/14/2018 1:03 PM FINDINGS: Bones/joints: Moderate L4-L5 and severe L5-S1 disc space narrowing. Soft tissues: Unremarkable. XR/XR lumbar spine 2-3V* [id number] IMPRESSION: Moderate L4-L5 and severe L5-S1 disc space narrowing.
--- NOTE | 2023-11-01 18:59 | W.ED.BACK ---
Documented by User: MAGDALENE Sumner 11/01/23 20:07 HPI - Back Pain/Injury General: Chief Complaint: Back Pain/Injury Stated Complaint: Lower back pain Time Seen by Provider: 11/01/23 18:51 Source: patient Mode of arrival: ambulatory Limitations: no limitations History of Present Illness: Patient is a 42-year-old male presents to the emergency department complaining of low back pain onset 2-3 days. 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 He states that he cannot get comfortable in any position, and he feels like his back is locked up on him. He notes that he was treated for his chronic back pain with gabapentin, Flexeril, and hydrocodone, but has since stopped taking these. He denies any bowel or bladder incontinence, numbness weakness tingling in his extremities, fevers, saddle anesthesia, or any other symptoms. He does note that the low back pain radiates down both legs, and states that his primary care doctor and [facility] diagnosed him with bilateral sciatica over the weekend. He last had an MRI 5-6 years ago with his initial injury, nothing recently. MD elicited complaint: back pain Pertinent past history: prior back pain Onset (ago): day(s) (2-3) Timing: constant Severity: severe Similar Symptoms Previously: Yes Quality: sharp Location: lumbar spine Radiation: left leg below the knee and right leg below the knee Exacerbating factors: movement Relieving factors: none Context: other (Multiple episodes of vomiting following food poisoning) Associated symptoms: Reports vomiting; Deny abdominal pain, chills, fever(s) or nausea Review of Systems General: Reports: 10 or more systems reviewed and unremarkable except in HPI and below Const: Denies: fever(s), chills, night sweats or diaphoresis Eyes: Denies: change in vision Card: Denies: chest pain, palpitations, edema or lightheadedness Resp: Denies: dyspnea, productive cough or wheezing GI: Reports: vomiting; Denies: abdominal pain, nausea or diarrhea : Denies: flank pain Musc: Reports: back pain and extremity pain; Denies: neck pain Skin/Breast: Denies: rash Neuro: Denies: headache(s), numbness in extremities, weakness in extremities, sensory changes or dizziness PFSH ED PFSH: Medical History Anxiety Family history of alpha 1 antitrypsin deficiency Degenerative disc disease Psychiatric care Depression Other [facility] (current) drug therapy Other [facility] (current) drug therapy Social History Smoking and tobacco/nicotine status: former use of tobacco/nicotine Physical Exam Const: COMMON NORMALS: average body habitus, patient oriented x3, no limitations and alert GENERAL APPEARANCE: cooperative and in distress (From pain) ORIENTATION/CONSCIOUSNESS: Yes awake HENMT: COMMON NORMALS: normocephalic, atraumatic and hearing grossly normal bilaterally HEAD & SCALP: normocephalic and atraumatic FACE & SINUS: normal facial exam Eye: COMMON NORMALS: EOMs intact bilaterally and conjunctivae normal CONJUNCTIVA: Yes conjunctivae normal Neck/C-Spine: COMMON NORMALS: full ROM Resp: COMMON NORMALS: normal respiratory effort, No retractions, No use of accessory muscles and clear to auscultation bilaterally AUSCULTATION: clear to auscultation bilaterally Cardio: COMMON NORMALS: regular rate, regular rhythm, S1 normal heart sound present and S2 normal heart sound present RATE: regular rate RHYTHM: regular rhythm HEART SOUNDS: S1 normal heart sound present and S2 normal heart sound present : COMMON NORMALS: Yes no CVA tenderness BLADDER/KIDNEY EXAM: Yes no CVA tenderness Back/Pelvis: COMMON NORMALS: no CVA tenderness and thoracic and lumbar spine normal to inspection THORACIC SPINE/UPPER BACK: Yes normal to inspection LUMBAR SPINE/LOWER BACK: Yes ROM limited, Yes pain with ROM, Yes paraspinal muscle tenderness Lumbar paraspinal muscle tenderness: bilateral, Yes paraspinal muscle spasm Lumbar paraspinal muscle spasm: bilateral and No mass present OTHER: Straight leg raise testing unable to be assessed due to patient's pain and tolerance. Deep tendon reflexes intact. No spinous process tenderness. Range of motion limited in all planes due to patient's pain. Extremity: COMMON NORMALS: normal to inspection and full ROM Neuro: COMMON NORMALS: patient oriented x3, moves all extremities, no focal motor deficits, no sensory deficits noted and deep tendon reflexes 2+ bilaterally SENSORIUM/ORIENTATION: Yes alert Psych: COMMON NORMALS: mental status grossly normal Skin: COMMON NORMALS: no rashes or lesions noted and no wounds GENERAL SKIN EXAM: no rashes or lesions noted Course Vital Signs: Vital signs: Vital Signs Temperature 98.2 F 11/01/23 18:46 Pulse Rate 50 L 11/01/23 19:29 Respiratory Rate 16 11/01/23 18:46 Blood Pressure 146/86 11/01/23 19:29 Pulse Oximetry 97 11/01/23 19:29 Oxygen Delivery Me thod Room Air 11/01/23 19:29 MDM - Back Pain/Injury Medical Decision Making Patient seen and evaluated in the emergency department today for low back pain. 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 He notes it was controlled with medications up until he reaggravated it over the weekend while vomiting. Vitals on arrival normal. Examination remarkable for paralumbar muscle spasm and tenderness to palpation, neurologic examination intact with symmetrical DTRs. Patient given doses of dexamethasone, Toradol, and Norflex. X-ray of the lumbar back shows moderate L4-L5 and severe L5-S1 disc space narrowing. On recheck, patient states he feels a little better. I informed the patient that I will refer him to orthopedic/spine for further evaluation and potentially an MRI. I will send him prescriptions for cyclobenzaprine, prednisone, and Toradol to make him more comfortable prior to following up. Patient agrees with this plan. Return precautions given, specifically any bowel or bladder incontinence, or saddle anesthesia. Labs Radiology Impressions Lumbar Spine X-Ray 11/01/23 18:58 IMPRESSION: Moderate L4-L5 and severe L5-S1 disc space narrowing. All radiology interpretation(s) finalized by discharge Discharge Plan Discharge Patient Disposition: Home Clinical Impression: Lumbar spinal stenosis Qualifiers: Neurogenic claudication status: unspecified Qualified Code(s): M48.061 - Spinal stenosis, lumbar region without neurogenic claudication Condition: Stable Prescriptions: New cyclobenzaprine 10 mg tablet 10 mg PO TID Qty: 30 0RF prednisone 20 mg tablet 60 mg PO ONCE 5 Days Qty: 15 0RF ketorolac 10 mg tablet 10 mg PO Q8H PRN (Reason: pain) Qty: 30 0RF No Action cholecalciferol (vitamin D3) 10 mcg (400 unit) capsule 10 mcg PO DAILY omega 4-lkc-vyc-fish oil [Fish Oil] 1,000 mg (120 mg-180 mg) capsule 1 cap PO BID clonazepam 0.5 mg tablet 0.5 mg PO BID PRN (Reason: anxiety) 30 Days Qty: 60 2RF escitalopram oxalate 20 mg tablet 20 mg PO DAILY 30 Days Qty: 30 3RF testosterone cypionate [Depo-Testosterone] 200 mg/mL oil 200 mg SUBCUT Q14D 90 Days Qty: 10 1RF Rx Instructions: Include IM needles and syringes for injection Discharge Orders: Discharge ED (Routine); Ordered 11/01/23 Ordered By: Star Schroeder Referrals: Donna Ibrahim MD [Primary Care Provider] - Discharge Diet: Usual diet Discharge Activity: Limit activity as instructed Patient Instructions: Lumbar Spinal Stenosis (ED) Activity Restrictions/Additional Instructions: Follow-up with orthopedics as instructed. Take medications as prescribed. Gentle range of motion as tolerated. Please return if you develop any urinary or bowel incontinence, numbness in your groin region, or any other concerning symptoms you may have. Coding Level of Care Code ED Sales Review Clerk for [employer] Documented by User: Tim Lizarraga DO 11/02/23 05:49 HPI - Back Pain/Injury General: Chief Complaint: Back Pain/Injury Stated Complaint: Lower back pain Time Seen by Provider: 11/01/23 18:51 PFSH ED PFSH: Medical History Anxiety Family history of alpha 1 antitrypsin deficiency Degenerative disc disease Psychiatric care Depression [facility] Social History Smoking and tobacco/nicotine status: former use of tobacco/nicotine Course Vital Signs: Vital signs: Vital Signs Temperature 98.2 F 11/01/23 18:46 Pulse Rate 50 L 11/01/23 19:29 Respiratory Rate 16 11/01/23 18:46 Blood Pressure 146/86 11/01/23 19:29 Pulse Oximetry 97 11/01/23 19:29 Oxygen Delivery Me thod Room Air 11/01/23 19:29 MDM - Back Pain/Injury Medical Decision Making Patient seen and evaluated in the emergency department today for low back pain. 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 He notes it was controlled with medications up until he reaggravated it over the weekend while vomiting. Vitals on arrival normal. Examination remarkable for paralumbar muscle spasm and tenderness to palpation, neurologic examination intact with symmetrical DTRs. Patient given doses of dexamethasone, Toradol, and Norflex. X-ray of the lumbar back shows moderate L4-L5 and severe L5-S1 disc space narrowing. On recheck, patient states he feels a little better. I informed the patient that I will refer him to orthopedic/spine for further evaluation and potentially an MRI. I will send him prescriptions for cyclobenzaprine, prednisone, and Toradol to make him more comfortable prior to following up. Patient agrees with this plan. Return precautions given, specifically any bowel or bladder incontinence, or saddle anesthesia. Chart reviewed Labs Radiology Impressions Lumbar Spine X-Ray 11/01/23 18:58 IMPRESSION: Moderate L4-L5 and severe L5-S1 disc space narrowing. Discharge Plan Discharge Patient Disposition: Home Clinical Impression: Lumbar spinal stenosis Qualifiers: Neurogenic claudication status: unspecified Qualified Code(s): M48.061 - Spinal stenosis, lumbar region without neurogenic claudication Condition: Stable Prescriptions: New cyclobenzaprine 10 mg tablet 10 mg PO TID Qty: 30 0RF prednisone 20 mg tablet 60 mg PO ONCE 5 Days Qty: 15 0RF ketorolac 10 mg tablet 10 mg PO Q8H PRN (Reason: pain) Qty: 30 0RF No Action cholecalciferol (vitamin D3) 10 mcg (400 unit) capsule 10 mcg PO DAILY omega 5-wdy-wto-fish oil [Fish Oil] 1,000 mg (120 mg-180 mg) capsule 1 cap PO BID clonazepam 0.5 mg tablet 0.5 mg PO BID PRN (Reason: anxiety) 30 Days Qty: 60 2RF escitalopram oxalate 20 mg tablet 20 mg PO DAILY 30 Days Qty: 30 3RF testosterone cypionate [Depo-Testosterone] 200 mg/mL oil 200 mg SUBCUT Q14D 90 Days Qty: 10 1RF Rx Instructions: Include IM needles and syringes for injection Discharge Orders: Discharge ED (Routine); Ordered 11/01/23 Ordered By: Star Schroeder Referrals: Donna Ibrahim MD [Primary Care Provider] - Discharge Diet: Usual diet Discharge Activity: Limit activity as instructed Patient Instructions: Lumbar Spinal Stenosis (ED) Activity Restrictions/Additional Instructions: Follow-up with orthopedics as instructed. Take medications as prescribed. Gentle range of motion as tolerated. Please return if you develop any urinary or bowel incontinence, numbness in your groin region, or any other concerning symptoms you may have. Coding Level of Care Code ED Sales Review Clerk for Joyce Harris
[2023-11-01] MEDS: dexamethasone 10 mg/mL INJ 8 MG IM (19:04)
[2023-11-01] MEDS: orphenadrine 30 mg/mL Inj 2 mL 60 MG IM (19:05)
[2023-11-01] MEDS: ketorolac 60 mg/2 mL INJ IM (19:06)
[2023-11-01 19:29] VITALS: BP 146/86; PULSE 50; O2SAT 97
[2023-11-01] MEDS: cyclobenzaprine 10 mg Tablet PO (20:12)
--- NOTE | 2023-11-02 07:27 | DCPLANNER ---
Message sent to [facility] for a follow up appointment
== END 2023-11-01 20:16 | disposition home or self-care (01) ==
PROVIDERS: Emergency Provider Physician Assistant; PCP Family Medicine
DX: M48.061 Spinal stenosis, lumbar region without neurogenic claudication (principal); Z87.891 Personal history of nicotine dependence
CPT/HCPCS: 72100; 96372; 99284; J1100; J1885; J2360

== ENCOUNTER → 2023-11-09 15:57 | Outpatient (BNVA) | payer SELFPAY | PROVIDERS: PCP Family Medicine; Referring Provider Physician Assistant; Visit Provider Orthopaedic Surgery | DX: M48.061 Spinal stenosis, lumbar region without neurogenic claudication (principal) | CPT/HCPCS: 72110 ==

== ENCOUNTER 2023-12-30 17:27 | Emergency (ER) | payer BC, MEDICAID, SELFPAY ==
[2023-12-30 17:36] VITALS: BP 140/83; PULSE 73; RESP 16; TEMP 37.1; O2SAT 96
--- NOTE | 2023-12-30 18:05 | CTR_ITS ---
PROCEDURE INFORMATION: Exam: CT Abdomen And Pelvis Without Contrast Exam date and time: 12/30/2023 6:26 PM Age: 43 years old Clinical indication: Abdominal pain; Flank; Left; Additional info: L flank pain TECHNIQUE: Imaging protocol: Computed tomography of the abdomen and pelvis without contrast. Axial, coronal and sagittal reformatted images were created and reviewed. Radiation optimization: All CT scans at this facility use at least one of these dose optimization techniques: automated exposure control; mA and/or kV adjustment per patient size (includes targeted exams where dose is matched to clinical indication); or iterative reconstruction. COMPARISON: CT abdomen pelvis w con* [id number] 04/16/2019 11:53 AM RADIATION DOSE METRICS: Total DLP (mGy-cm): 751.72 FINDINGS: Liver: Mild hepatomegaly. Diffuse hepatic steatosis. Gallbladder and bile ducts: Contracted gallbladder without radiodense gallstones. Pancreas: Unremarkable. Spleen: Unremarkable. Adrenal glands: Normal. No mass. Kidneys and ureters: 1.5 x 1.2 cm right renal cyst (no follow-up is indicated based on the imaging appearance). No radiodense calculi. No hydronephrosis. Stomach and bowel: Focal area of wall thickening and associated pericolonic stranding in the descending colon in a region containing multiple diverticula. No obstruction. No pneumatosis. Appendix: Appendix not identified with certainty but no right lower quadrant inflammatory change to suggest acute appendicitis. Intraperitoneal space: No free fluid. No organized fluid collection. No free air. Vasculature: Unremarkable. No aneurysm. Lymph nodes: No pathologically enlarged lymph nodes. Urinary bladder: Unremarkable as visualized. Reproductive: Unremarkable. Bones/joints: No acute osseous abnormality. Mild degenerative changes. Soft tissues: Unremarkable. CT/CT kidney stone [id number] IMPRESSION: 1. Acute diverticulitis of the descending colon, as described above. No abscess, obstruction or free air. Follow-up to resolution is recommended. 2. Additional findings, as above. COMMENTS: Consistent with the [employer]'s Incidental Findings Committee white paper (J Am Marlen Radiol 2018): Any incidental renal lesion less than 1 cm or classified as too small to characterize, or any incidental cystic renal lesion characterized as simple-appearing, is likely benign. No follow-up imaging is recommended for these lesions per consensus recommendations based on imaging criteria.
--- NOTE | 2023-12-30 18:05 | ED_ITS ---
HPI - Abdominal Pain 2 General: Chief Complaint: Abdominal Pain Stated Complaint: left side abd pain Time Seen by Provider: 12/30/23 17:57 Source: patient Mode of arrival: ambulatory Limitations: no limitations History of Present Illness: 43-year-old male has been having left flank pain that radiates into his left testicle today. States never had a history of kidney stone his physician thought it was likely a stone set him up for CT scan he had a shot of Toradol at the clinic states pain improved pain is now 2 out of 10 denies any fever denies any dysuria Associated Symptoms: Denies chills, diarrhea, fever(s), nausea and vomiting Review of Systems 2 Const: Denies: fever(s), chills, body aches or change in appetite ENMT: Denies: throat pain or dental pain Card: Denies: chest pain Resp: Denies: dyspnea GI: Reports: abdominal pain; Denies: nausea, vomiting or diarrhea Musc: Denies: neck pain or back pain Skin/Breast: Denies: rash Neuro: Denies: headache(s) PFSH ED 2 PFSH: Medical History Anxiety Family history of alpha 1 antitrypsin deficiency Degenerative disc disease Psychiatric care Depression 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 Social History Smoking and tobacco/nicotine status: former use of tobacco/nicotine Physical Exam 2 Const: COMMON NORMALS: no acute distress, patient oriented x3 and healthy appearing HENMT: COMMON NORMALS: normocephalic and atraumatic HEAD & SCALP: n ormocephalic and atraumatic Neck/C-Spine: COMMON NORMALS: full ROM and supple Chest: COMMONS NORMALS: normal inspection of the chest Resp: COMMON NORMALS: normal respiratory effort Cardio: COMMON NORMALS: regular rate, regular rhythm and No murmurs present (Cardio) RATE: regular rate RHYTHM: regular rhythm GI: COMMON NORMALS: Normal to inspection, nondistended, normoactive bowel sounds present, Soft to palpation, non-tender and no masses PALPATION: Yes Soft to palpation Extremity: COMMON NORMALS: normal to inspection and full ROM Neuro: COMMON NORMALS: patient oriented x3, moves all extremities and no focal motor deficits Psych: COMMON NORMALS: mental status grossly normal, Normal thought process present and cooperative THOUGHT PROCESS: Normal thought process present Skin: COMMON NORMALS: no rashes or lesions noted and no wounds GENERAL SKIN EXAM: no rashes or lesions noted Course 2 Vital Signs: Vital signs: Vital Signs Temperature 98.7 F 12/30/23 17:36 Pulse Rate 79 12/30/23 18:28 Respiratory Rate 16 12/30/23 17:36 Blood Pressure 153/79 12/30/23 18:28 Pulse Oximetry 98 12/30/23 18:28 Oxygen Delivery Me thod Room Air 12/30/23 17:36 MDM - Abdominal Pain Medical Decision Making Patient presents here with left lower quadrant pain and flank pain he is found to have diverticulitis no signs of kidney stone white counts normal we will treat outpatient with Cipro Flagyl pain meds he is follow-up with PCP return if worsening he understands agrees to plan. Medical Records I reviewed the patient's medical records. Lab Data I reviewed the patient's lab results. 12/30/23 18:17 12/30/23 18:17 Labs/Radiology: Radiology Impressions Abdomen/Pelvis CT 12/30/23 18:05 IMPRESSION: 1. Acute diverticulitis of the descending colon, as described above. No abscess, obstruction or free air. Follow-up to resolution is recommended. 2. Additional findings, as above. COMMENTS: Consistent with the [employer]'s Incidental Findings Committee white paper (J Am Marlen Radiol 2018): Any incidental renal lesion less than 1 cm or classified as too small to characterize, or any incidental cystic renal lesion characterized as simple-appearing, is likely benign. No follow-up imaging is recommended for these lesions per consensus recommendations based on imaging criteria. Laboratory Results WBC 10.94 10^3/uL (3.29-11.43) 12/30/23 18:17 RBC 5.14 10^6/uL (3.85-5.65) 12/30/23 18:17 Hgb 15.90 g/dL (11.27-16.99) 12/30/23 18:17 Hct 46.2 % (37-53) 12/30/23 18:17 MCV 89.9 fl (82-101) 12/30/23 18:17 MCH 30.9 pg (27-33) 12/30/23 18:17 MCHC 34.4 g/dL (30-55) 12/30/23 18:17 RDW 12.9 % (12.1-15.1) 12/30/23 18:17 Plt Count 186 10^3/cmm (157-399) 12/30/23 18:17 MPV 9.4 fL (7.4-10.4) 12/30/23 18:17 Neut % (Auto) 74.9 % 12/30/23 18:17 Lymph % (Auto) 13.8 % 12/30/23 18:17 Yell % (Auto) 8.4 % 12/30/23 18:17 Eos % (Auto) 1.9 % 12/30/23 18:17 Baso % (Auto) 0.6 % 12/30/23 18:17 Neut # (Auto) 8.19 10^3/uL (1.8-7.7) H 12/30/23 18:17 Lymph # (Auto) 1.5 10^3/uL (0.8-4.8) 12/30/23 18:17 Yell # (Auto) 0.9 10^3/uL (0.2-0.9) 12/30/23 18:17 Eos # (Auto) 0.2 10^3/uL (0.0-0.8) 12/30/23 18:17 Baso # (Auto) 0.1 10^3/uL (0.0-0.1) 12/30/23 18:17 Nucleated RBC % (auto) 0 % 12/30/23 18:17 Nucleated RBCs # 0.0 /100WBC 12/30/23 18:17 Sodium 137 mmol/L (136-145) 12/30/23 18:17 Potassium 3.9 mmol/L (3.5-5.1) 12/30/23 18:17 Chloride 102 mmol/L (98-107) 12/30/23 18:17 Carbon Dioxide 25 mmol/L (22-29) 12/30/23 18:17 Anion Gap 13.9 (5-19) 12/30/23 18:17 BUN 11 mg/dL (6-20) 12/30/23 18:17 Creatinine 1.1 mg/dL (0.7-1.2) 12/30/23 18:17 GFR Calculation 73.1 mL/min (90-130) L 12/30/23 18:17 Glucose 111 mg/dL (65-115) 12/30/23 18:17 Calculated Osmolality 284 mOsm/kg (285-295) L 12/30/23 18:17 Calcium 9.1 mg/dL (8.5-10.5) 12/30/23 18:17 Total Bilirubin 0.4 mg/dL (0.15-1.2) 12/30/23 18:17 AST 22 U/L (0-40) 12/30/23 18:17 ALT 25 U/L (0-41) 12/30/23 18:17 Alkaline Phosphatase 44 U/L (40-130) 12/30/23 18:17 Total Protein 7.5 g/dL (6.6-8.7) 12/30/23 18:17 Albumin 4.5 g/dL (3.5-5.2) 12/30/23 18:17 Globulin 3.0 g/dL (1.3-4.6) 12/30/23 18:17 Urine Color Light yellow (Yellow) 12/30/23 18:27 Urine Appearance Clear (CLEAR) 12/30/23 18:27 Urine pH 5 (5-7) 12/30/23 18:27 Ur Specific [place] 1.000 (1.005-1.030) L 12/30/23 18:27 Urine Protein Neg (Negative) 12/30/23 18:27 Urine Glucose (UA) Norm (Normal) 12/30/23 18:27 Urine Ketones Negative (Negative) 12/30/23 18:27 Urine Blood Neg (Negative) 12/30/23 18:27 Urine Nitrate Negative (Negative) 12/30/23 18:27 Urine Bilirubin Neg (Negative) 12/30/23 18:27 Urine Urobilinogen Norm mg/dL (Negative) 12/30/23 18:27 Ur Leukocyte Esterase Negative (Negative) 12/30/23 18:27 All radiology interpretation(s) finalized by discharge Discharge Plan Discharge Patient Disposition: Home Clinical Impression: Diverticulitis Condition: Stable Prescriptions: New hydrocodone-acetaminophen 5-325 mg tablet 1 tab PO Q6H PRN (Reason: pain) Qty: 14 0RF metronidazole 500 mg tablet 500 mg PO Q8H 7 Days Qty: 21 0RF ciprofloxacin HCl [Cipro] 500 mg tablet 500 mg PO BID Qty: 14 0RF ondansetron 4 mg tablet,disintegrating 4 mg PO Q6H PRN (Reason: nausea and vomiting) Qty: 14 0RF No Action cholecalciferol (vitamin D3) 10 mcg (400 unit) capsule 10 mcg PO DAILY omega 9-hgh-wdr-fish oil [Fish Oil] 1,000 mg (120 mg-180 mg) capsule 1 cap PO BID testosterone cypionate [Depo-Testosterone] 200 mg/mL oil 200 mg SUBCUT Q14D 90 Days Qty: 10 1RF Rx Instructions: Include IM needles and syringes for injection clonazepam 0.5 mg tablet 0.5 mg PO BID PRN (Reason: anxiety) 30 Days Qty: 60 0RF escitalopram oxalate 20 mg tablet 20 mg PO DAILY 30 Days Qty: 30 3RF cyclobenzaprine 10 mg tablet 10 mg PO TID Qty: 30 0RF Discharge Orders: Discharge ED (Routine); Ordered 12/30/23 Ordered By: Senia Grayson Referrals: Donna Ibrahim MD [Primary Care Provider] - 1-3 days Discharge Diet: Advance as tolerated Discharge Activity: Resume usual activity Patient Instructions: Diverticulitis (ED), Opioid Safety Coding Level of Care Code ED Ssis Ssrs Developer for Joyce Harris
[2023-12-30 18:23] LABS: Basophils # 0.1 10^3/uL (0.0-0.1); Basophils % 0.6 %; Eosinophils # 0.2 10^3/uL (0.0-0.8); Eosinophils % 1.9 %; Hematocrit 46.2 % (37-53); Lymphocytes # 1.5 10^3/uL (0.8-4.8); Lymphocytes % 13.8 %; Mean Corpuscular HGB Conc 34.4 g/dL (30-55); Mean Corpuscular Hemoglobin 30.9 pg (27-33); Mean Corpuscular Volume 89.9 fl (82-101); Mean Platelet Volume 9.4 fL (7.4-10.4); Monocytes # 0.9 10^3/uL (0.2-0.9); Monocytes % 8.4 %; Neutrophils # 8.19 10^3/uL (1.8-7.7); Neutrophils % 74.9 %; Nucleated Red Blood Cells % 0 %; Platelet Count 186 10^3/cmm (157-399); Red Blood Count 5.14 10^6/uL (3.85-5.65); Red Cell Distribution Width 12.9 % (12.1-15.1); White Blood Count 10.94 10^3/uL (3.29-11.43)
[2023-12-30 18:28] VITALS: BP 153/79; PULSE 79; O2SAT 98
[2023-12-30] MEDS: sodium chloride 0.9% 1,000 ML 999 ML IV (18:31)
--- NOTE | 2023-12-30 18:35 | PC.NURSE ---
pt refused Morphine and Zofran at this time d/t pain being controlled, pt states he may need them later. Dr. Grayson notified.
[2023-12-30 18:45] LABS: Add Urine Microscopic? NO; Charge for UA Resulting for Rev
[2023-12-30 18:46] LABS: Alanine Aminotransferase 25 U/L (0-41); Albumin Level 4.5 g/dL (3.5-5.2); Alkaline Phosphatase 44 U/L (40-130); Aspartate Amino Transferase 22 U/L (0-40); Blood Urea Nitrogen 11 mg/dL (6-20); Calcium 9.1 mg/dL (8.5-10.5); Carbon Dioxide 25 mmol/L (22-29); Chloride 102 mmol/L (98-107); Creatinine Clr Calc Pharmacy 99.4201; Glomerular Filtration Rate 73.1 mL/min (90-130); Glucose 111 mg/dL (65-115); Osmolality Calculated 284 mOsm/kg (285-295); Sodium 137 mmol/L (136-145); Total Bilirubin 0.4 mg/dL (0.15-1.2); Total Protein 7.5 g/dL (6.6-8.7)
[2023-12-30 18:52] LABS: Anion Gap 13.9 (5-19); Potassium 3.9 mmol/L (3.5-5.1)
[2023-12-30 19:04] LABS: Bilirubin Urine Neg (Negative); Blood Urine Neg (Negative); Glucose Urine UA Norm (Normal); Ketones Urine Negative (Negative); Nitrate Urine Negative (Negative); Protein Urine Neg (Negative); Urine Appearance Clear (CLEAR); Urine Color Light yellow (Yellow); Urobilinogen Urine Norm (Negative); pH Urine 5 (5-7)
[2023-12-30 19:05] LABS: Leukocyte Esterase Urine Negative (Negative)
[2023-12-30 19:54] VITALS: BP 157/98; PULSE 77; RESP 20; O2SAT 93
== END 2023-12-30 19:43 | disposition home or self-care (01) ==
PROVIDERS: Emergency Provider Emergency Medicine; PCP Family Medicine
DX: K57.92 Diverticulitis of intestine, part unspecified, without perforation or abscess without bleeding (principal); Z87.891 Personal history of nicotine dependence
CPT/HCPCS: 74176; 80053; 81000; 81003; 85025; 99284; J7030

== ENCOUNTER → 2024-03-22 14:19 | Outpatient (BNVA) | payer BC, MEDICAID, SELFPAY | PROVIDERS: PCP Family Medicine; Visit Provider Family Medicine | DX: E34.9 Endocrine disorder, unspecified (principal) | CPT/HCPCS: 84402; 84403 ==

== ENCOUNTER → 2024-09-21 08:35 | Outpatient (BNVA) | payer BC, MEDICAID, SELFPAY | PROVIDERS: PCP Family Medicine; Visit Provider Family Medicine | DX: I10 Essential (primary) hypertension (principal); E78.1 Pure hyperglyceridemia; E34.9 Endocrine disorder, unspecified; R53.83 Other fatigue; Z51.81 Encounter for therapeutic drug level monitoring; F32.9 Major depressive disorder, single episode, unspecified | CPT/HCPCS: 80053; 80061; 83735; 84402; 84403; 84443; 85025 ==

== ENCOUNTER → 2024-12-07 11:14 | Outpatient (BNVA) | payer BC, SELFPAY | PROVIDERS: PCP Family Medicine; Visit Provider Nurse Practitioner | DX: R07.9 Chest pain, unspecified (principal) | CPT/HCPCS: 85025 ==

== ENCOUNTER → 2025-05-31 08:51 | Outpatient (BNVA) | payer OTHER, SELFPAY | PROVIDERS: PCP Family Medicine; Visit Provider Nurse Practitioner | DX: E34.9 Endocrine disorder, unspecified (principal) | CPT/HCPCS: 84402; 84403 ==